=== PATIENT | female | born 1950 | race Caucasian/White ===

== ENCOUNTER 2022-03-13 05:52 | Inpatient (IN) ==
[2022-03-13] MEDS ORDERED: CeFAZolin Syr 2,000MG/20 ML 2,000 MG/20 ML SYRINGE IVPB ONE (06:25)
[2022-03-13] MEDS ORDERED: tiZANidine 4 MG TABLET PO ONE (06:30)
[2022-03-13] MEDS ORDERED: Famotidine 20 MG/2 ML VIAL IVP ONE (06:30)
[2022-03-13] MEDS ORDERED: Acetaminophen IV 1,000 MG/100 ML BAG IVPB ONE (06:30)
[2022-03-13] MEDS ORDERED: Ringers Solution, Lactated 1,000 ML IVC SCH (06:30)
[2022-03-13] MEDS ORDERED: *HR* OxyCODONE Immed Rel 5 MG TABLET PO ONE (06:30)
[2022-03-13] MEDS ORDERED: Lidocaine -MPF 4% 5 ML AMPUL ONE (07:04)
[2022-03-13] MEDS ORDERED: *HR* Propofol 200 MG/20 ML VIAL IVP ONE (07:07)
[2022-03-13] MEDS ORDERED: *HR* Succinylcholine 200 MG/10 ML VIAL IVP ONE (07:09)
[2022-03-13] MEDS ORDERED: Ondansetron 4 MG/2 ML VIAL ONE (07:09)
[2022-03-13] MEDS ORDERED: *HR* Rocuronium Bromide 50 MG/5 ML VIAL ONE (07:09)
[2022-03-13] MEDS ORDERED: Lidocaine -MPF 2% 2 ML VIAL ONE (07:09)
[2022-03-13] MEDS ORDERED: Bupivacaine/EPI 1:200k 0.25% 50 ML VIAL ONE (07:11)
[2022-03-13] MEDS ORDERED: *HR* Phenylephrine 10 MG/ML VIAL ONE (07:13)
[2022-03-13] MEDS ORDERED: *HR* Remifentanil 2 MG VIAL IVP ONE ×2 (07:15→10:34)
[2022-03-13] MEDS ORDERED: *HR* FentaNYL (PF) 100 MCG/2 ML VIAL ONE (07:25)
[2022-03-13] MEDS ORDERED: EPHEDrine 50 MG/ML VIAL ONE (07:30)
[2022-03-13] MEDS ORDERED: Heparin 1,000 UNITS/500 mL 500 ML ONE (07:32)
[2022-03-13] MEDS ORDERED: Polymyxin B Sulfate 500,000 UNIT, Sodium Chloride IRRigation 1,000 ML IR ONE (07:45)
[2022-03-13] MEDS ORDERED: *HR* Magnesium Sulfate 1 GM/2 ML VIAL ONE (09:27)
[2022-03-13] MEDS ORDERED: Ketamine HCL *QUVA* 50mg (1mL) SYRINGE ONE (09:27)
[2022-03-13] MEDS ORDERED: niCARdipine 0 MG/0 ML MLS IVC ONE (11:42)
[2022-03-13] MEDS ORDERED: Vancomycin 1,000 MG VIAL ONE (11:43)
[2022-03-13] MEDS ORDERED: Naloxone 0.4 MG/ML INJ IVP PRN (14:58)
[2022-03-13] MEDS ORDERED: Ondansetron 4 MG/2 ML VIAL IVP PRN (14:58)
[2022-03-13] MEDS ORDERED: Famotidine 20 MG TABLET PO PRN (14:58)
[2022-03-13] MEDS: *HR* OxyCODONE Immed Rel 5 MG TABLET PO PRN (15:16)
[2022-03-13] MEDS: Ringers Solution, Lactated 1,000 ML IVC SCH ×2 (15:17→22:06)
[2022-03-13] MEDS: Gabapentin 300 MG CAPSULE PO SCH ×2 (15:17→20:29)
[2022-03-13] MEDS: Baclofen 10 MG TABLET PO SCH ×2 (15:17→20:29)
[2022-03-13] MEDS: CeFAZolin 2 GM/120 ML BAG IVPB SCH (18:26)
[2022-03-13] MEDS: Acetaminophen 325 MG TABLET PO SCH (18:27)
[2022-03-14] MEDS: CeFAZolin 2 GM/120 ML BAG IVPB SCH (00:05)
[2022-03-14] MEDS: Acetaminophen 325 MG TABLET PO SCH ×4 (00:05→19:35)
[2022-03-14] MEDS: Metoprolol XL (24 HR) Succ 25 MG TAB.ER.24H PO SCH (09:36)
[2022-03-14] MEDS: amLODIPine 5 MG TABLET PO SCH (09:36)
[2022-03-14] MEDS: Gabapentin 300 MG CAPSULE PO SCH ×3 (09:36→21:26)
[2022-03-14] MEDS: Baclofen 10 MG TABLET PO SCH ×3 (09:36→21:26)
[2022-03-14] MEDS: Losartan/HCTZ 50-12.5 TABLET PO SCH (09:38)
[2022-03-14 11:19] LABS: Bilirubin,Urine Negative (Negative); Blood,Urine Negative (Negative); Clarity,Urine Clear (Clear); Color,Urine Colorless (Yellow); Glucose,Urine (UA) Normal (Normal); Ketones,Urine Negative (Negative); Leukocyte Esterase,Urine Negative (Negative); Nitrite,Urine Negative (Negative); Protein,Urine Negative (Neg-Trace); Specific Gravity,Urine 1.006 (1.010-1.025); Urobilinogen,Urine Normal (Normal)
[2022-03-14] MEDS: *HR* OxyCODONE Immed Rel 5 MG TABLET PO PRN (14:08)
[2022-03-14] MEDS: *HR* HYDROcodone/Acet 5/325 mg TABLET PO PRN (21:26)
[2022-03-15] MEDS: Acetaminophen 325 MG TABLET PO SCH ×3 (00:01→16:22)
[2022-03-15] MEDS: *HR* OxyCODONE Immed Rel 5 MG TABLET PO PRN (03:31)
[2022-03-15] MEDS: amLODIPine 5 MG TABLET PO SCH (09:07)
[2022-03-15] MEDS: Losartan/HCTZ 50-12.5 TABLET PO SCH (09:07)
[2022-03-15] MEDS: Baclofen 10 MG TABLET PO SCH ×3 (09:08→20:07)
[2022-03-15] MEDS: Metoprolol XL (24 HR) Succ 25 MG TAB.ER.24H PO SCH (09:08)
[2022-03-15] MEDS: Gabapentin 300 MG CAPSULE PO SCH ×3 (09:08→20:08)
[2022-03-15] MEDS: *HR* HYDROcodone/Acet 5/325 mg TABLET PO PRN (20:07)
[2022-03-16] MEDS: *HR* OxyCODONE Immed Rel 5 MG TABLET PO PRN (01:47)
[2022-03-16] MEDS: Acetaminophen 325 MG TABLET PO SCH ×4 (01:47→12:18)
[2022-03-16] MEDS: Gabapentin 300 MG CAPSULE PO SCH ×2 (09:47→14:26)
[2022-03-16] MEDS: Baclofen 10 MG TABLET PO SCH ×2 (09:48→14:26)
[2022-03-16] MEDS: Losartan/HCTZ 50-12.5 TABLET PO SCH (10:15)
[2022-03-16] MEDS: amLODIPine 5 MG TABLET PO SCH (10:15)
[2022-03-16] MEDS: Metoprolol XL (24 HR) Succ 25 MG TAB.ER.24H PO SCH (10:15)
[2022-03-16 11:35] VITALS: BP 109/67; PULSE 97; TEMP 98.2; O2SAT 96
== END 2022-03-16 15:11 | disposition home health service (06) | DRG 473 ==
LOC: SDCAOSI 05:52 → 4WAOSI 14:40
PROVIDERS: ADMIT Student in an Organized Health Care Education/Training Program; ATTEND Student in an Organized Health Care Education/Training Program